=== PATIENT | female | born 1985 | race Caucasian/White ===

== ENCOUNTER 2016-04-09 15:05 | Emergency (ER) | payer OTHER ==
[~2016-04-09] VITALS: Ht 162.6 cm; Wt 69.8 kg
[2016-04-09 15:22] VITALS: BP 117/71; PULSE 85; RESP 16; TEMP 98.6; O2SAT 100
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
[2016-04-09 15:59] LABS: AUTOMATED NEUTROPHIL # 5.6 TH/MM3 (1.8-7.7); BASOPHIL % 0.3 % (0.0-2.0); EOSINOPHIL % 0.4 % (0.0-4.0); HEMATOCRIT 35.6 % (35.0-46.0); HEMO FLAGS DIFF FINAL; LYMPH % 30.1 % (9.0-44.0); MEAN CELL VOLUME 89.2 FL (80.0-100.0); MEAN CORPUSCULAR HGB CONC 33.6 % (32.0-36.0); MONO % 13.6 % (0.0-8.0); NEUT % 55.6 % (16.0-70.0); PLATELET COUNT 254 TH/MM3 (150-450); RED BLOOD COUNT 3.99 MIL/MM3 (4.00-5.30); RED CELL DISTRIBUTION WIDTH 11.2 % (11.6-17.2)
[2016-04-09 16:09] LABS: POTASSIUM 3.7 MEQ/L (3.5-5.1)
[2016-04-09 16:12] LABS: BICARBONATE 26.8 MEQ/L (21.0-32.0)
[2016-04-09] MEDS ORDERED: NAPR500T PO (17:15)
[2016-04-09 17:28] VITALS: BP 107/72
--- NOTE | 2016-04-09 17:28 | RADHPO ---
EXAM DATE/TIME: 04/09/2016 16:10 [facility] COMPARISON: No previous studies available for comparison. INDICATIONS : Body aches, nausea and chest pain. MEDICAL HISTORY : None. SURGICAL HISTORY : None. ENCOUNTER: Initial ACUITY: 2 days PAIN SCORE: 3/10 LOCATION: Bilateral chest FINDINGS: A single view of the chest demonstrates the lungs to be symmetrically aerated without evidence of mas s, infiltrate or effusion. The cardiomediastinal contours are unremarkable. Osseous structures are intact. CONCLUSION: No acute disease. Gerhard Mcintyre MD on April 09, 2016 at 17:26 Board Certified Radiologist. This report was verified electronically.
[2016-04-09] MEDS ORDERED: NAPROXEN 500 MG TAB PO ONE (17:30)
--- NOTE | 2016-04-10 11:51 | EKG ---
Date Performed: 04/09/2016 Time Performed: 15:22:32 PTAGE: 30 years EKG: Sinus rhythm rSr'(V1) - probable normal variant Normal ECG NO PREVIOUS TRACING DOCTOR: Blake Barney Interpretating Date/Time 04/10/2016 11:46:22
== END 2016-04-09 17:29 | disposition home or self-care (01) ==
LOC: PHED 15:05
DX: R07.89 Other chest pain (principal); R06.02 Shortness of breath; J45.909 Unspecified asthma, uncomplicated; Z72.0 Tobacco use
CPT/HCPCS: 71010; 80048; 84484; 84703; 85025; 93005; 99285